=== PATIENT | female | born 1970 | race Caucasian/White ===

== ENCOUNTER 2020-05-27 10:10 | Emergency (ER) | payer MEDICAID ==
[~2020-05-27] VITALS: Ht 157.5 cm; Wt 45.4 kg
--- NOTE | 2020-05-27 10:27 | NUR ---
ED Nurse Note: Pt ambulated to ER with cane c/o right knee pain. knee currently wrapped, and hait removed. knee appears slightly swollen. skin intact. pt denies injury or trauma to area. pt reports walking a lot and knee pain began 2 days ago.
[2020-05-27 10:28] VITALS: BP 121/86
--- NOTE | 2020-05-27 10:33 | NUR ---
ER DISCHARGE NOTE: Patient is cleared to be discharged per ERMD, pt is aox4, on room air, with stable vital signs. pt was given dc and prescription instructions, pt was able to verbalize understanding, pt id band remvoed. pt is able to ambulate with steady gait with cane. pt took all belongings.
[2020-05-27 10:34] VITALS: BP 119/80
--- NOTE | 2020-05-27 10:37 | Emergency Room Report ---
History of Present Illness General Chief Complaint: Pain Source: Patient Present Illness HPI Disclaimer: Please note that this report is being documented using [employer] technology. This can lead to erroneous entry secondary to incorrect interpretation by the dictating instrument. HPI: 49-year-old female history of arthritis presents for evaluation of right knee pain. Patient states yesterday she had swelling over the lateral aspect of the right knee and difficulty bending it. She applied an Francisco wrap, took 800 mg of ibuprofen and this morning found her symptoms improved. She still had minor pain over the lateral aspect of the right knee and came in for evaluation. Denies fall, twisting, trauma of any kind. No prior history of knee issues on this side. She had a knee replacement on the left side and therefore use a cane and favors the right side more. Family is visiting from [place] has been doing a lot of walking. Denies redness, purulent drainage, skin breakdown, fever, chills. Range of motion is returned. Able to bear weight without difficulty. No other issues reported today. 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 EOMI. Resp: Normal work of breathing Skin: Intact. No abrasions, laceration or rash over the exposed skin MSK: Normal tone and bulk. Moving all extremities. No obvious deformity. No edema, no skin breakdown, no erythema. Full range of motion on flexion extension. No laxity in varus or valgus testing. Moderate tenderness of the lateral aspect without palpable deformity. Neuro: Awake and alert. Mentating appropriately Medical Decision Making Diagnostic Impression: Primary Impression: Knee strain ER Course 49-year-old female presents for evaluation of knee pain and swelling last night now resolved. No evidence of major trauma or instability or infection on exam. Likely overuse injury from the extensive walking she has been doing and she favors her right knee given her knee replacement on the left side and the use of her cane. Patient has no history of gout or other crystal apathies. There is no effusion for drainage. I do not believe she requires emergent imaging as there was no trauma and she is fully weightbearing. Her symptoms appear to be improving. We will continue NSAID therapy, wrap and ice therapy. Patient was rewrapped in the ED had additional Francisco wrap were provided to her. She has ibuprofen at home. She is returning to [place] today and I encouraged her to follow-up with her PMD at the next available appointment. Discussed reasons to return to the ED. She understands and agrees with this treatment plan. Last Vital Signs Date Time Temp Pulse Resp B/P (MAP) Pulse Ox O2 Delivery O2 Flow Rate FiO2 05/27/20 10:28 98.2 79 19 121/86 98 Room Air Disposition: HOME, SELF-CARE Condition: Stable Patient Instructions: Elastic Bandage and RICE Additional Instructions: Please follow-up with your primary care doctor in the next 1 to 3 days to discuss this emergency department visit and for reevaluation. If you have any new or worsening symptoms please return to the emergency department for reevaluation. Please note that this report is being documented using [employer] technology. This can lead to erroneous entry secondary to incorrect interpretation by the dictating instrument. Shon Toribio MD May 27, 2020 10:37
== END 2020-05-27 10:35 | disposition home or self-care (01) ==
LOC: EMR 10:30
DX: S86.911A Strain of unspecified muscle(s) and tendon(s) at lower leg level, right leg, initial encounter (principal); X58.XXXA Exposure to other specified factors, initial encounter; Y92.9 Unspecified place or not applicable; Z96.652 Presence of left artificial knee joint; Z98.1 Arthrodesis status; Z88.6 Allergy status to analgesic agent
CPT/HCPCS: 99281